=== PATIENT | female | born 1980 | race Caucasian/White ===

== ENCOUNTER 2021-11-06 09:03 | Emergency (ER) | payer OTHER ==
[~2021-11-06] VITALS: Ht 167.6 cm; Wt 68.0 kg
[~2021-11-06 09:03] MED LIST: NO CURRENT MEDS
[2021-11-06 09:10] VITALS: BP 108/73
[2021-11-06] MEDS ORDERED: HYDR-4209 PO (10:24)
--- NOTE | 2021-11-06 10:29 | NUR ---
Patient discharged to home in stable condition. Written and verbal after care instructions given. Patient verbalizes understanding of instruction.
== END 2021-11-06 10:29 | disposition home or self-care (01) ==
LOC: ER 09:09
DX: S20.212A Contusion of left front wall of thorax, initial encounter (principal); X58.XXXA Exposure to other specified factors, initial encounter; Y93.18 Activity, surfing, windsurfing and boogie boarding; Y92.89 Other specified places as the place of occurrence of the external cause; Y99.8 Other external cause status
CPT/HCPCS: 71100-TC

== ENCOUNTER 2025-03-18 21:16 | Emergency (ER) | payer MEDICAID, OTHER ==
[~2025-03-18] VITALS: Ht 167.6 cm; Wt 65.3 kg
[~2025-03-18 21:16] MED LIST changes: +HYDR-4209 PO
[2025-03-18] MEDS ORDERED: IBUPROFEN 400 MG TABLET ONE (22:53)
[2025-03-18] MEDS: IBUPROFEN 400 MG TABLET PO ONE (22:56)
[2025-03-18 23:39] VITALS: BP 110/72; TEMP 98.1; O2SAT 99
== END 2025-03-18 23:40 | disposition home or self-care (01) ==
LOC: ER 21:20
DX: M53.3 Sacrococcygeal disorders, not elsewhere classified (principal); W18.30XA Fall on same level, unspecified, initial encounter; Y93.89 Activity, other specified; Y92.89 Other specified places as the place of occurrence of the external cause; Y99.8 Other external cause status
CPT/HCPCS: 72220-TC